=== PATIENT | male | born 1980 | race African-American/Black ===

== ENCOUNTER 2017-09-08 06:36 | Day surgery (SDC) | payer MEDICAID ==
[~2017-09-08] VITALS: Ht 189.2 cm; Wt 96.8 kg
[~2017-09-08 06:36] MED LIST: NO HOME MEDS; SODIUM CHLORIDE 0.9% 1,000 ML IV ONE
[2017-09-08] MEDS ORDERED: SODIUM CHLORIDE 0.9% 1,000 ML IV ONE (06:49)
[2017-09-08] MEDS ORDERED: MAG355OR71 PO (07:45)
[2017-09-08] MEDS ORDERED: RANI300T4 PO (07:45)
== END 2017-09-08 10:35 | disposition home or self-care (01) ==
LOC: SURGERY 06:36
PROVIDERS: ATTEND Internal Medicine Gastroenterology
DX: K29.50 Unspecified chronic gastritis without bleeding (principal); K21.9 Gastro-esophageal reflux disease without esophagitis; Z72.89 Other problems related to lifestyle; Z98.890 Other specified postprocedural states; Z79.899 Other long term (current) drug therapy
CPT/HCPCS: 43239; 88305; 88312; J7030